=== PATIENT | female | born 1975 | race Caucasian/White ===

== ENCOUNTER 2021-07-21 21:07 | Observation (INO) ==
[2021-07-21] MEDS ORDERED: ONDANSETRON INJ 2 MG/ML 2 ML VIAL IV STA (22:01)
[2021-07-21] MEDS ORDERED: MoRPHine SULFATE 4 MG/ML 1 ML CARP\\VIAL IV STA (22:01)
[2021-07-21] MEDS ORDERED: methylPREDNISolone 125 MG/2 ML VIAL IV STA (22:01)
--- NOTE | 2021-07-21 22:04 | Emergency Department Note ---
Impression & Plan Lumbar disc disease ADMIT ED Provider Note HPI: The patient is a 46-year-old female who presents the emergency department with right lower back pain radiating down the right leg. Patient states that she has had issues with right lower back pain with some radicular symptoms down the right buttocks and right leg for the past 2 weeks. She states that she is actually had manipulations done by chiropractor but this seems to have worsened her pain. Patient denies any urinary incontinence or retention, denies any recent fevers, denies any sensory deficits distally in the lower extremities, motor function has been intact throughout the course of her symptoms over the past 2 weeks. On arrival here to the ED the patient is noted to be hypertensive and in mild distress secondary to back pain. She is otherwise saturating well on room air, afebrile, hemodynamically stable. ROS: -MSK: Lower back pain with radicular symptoms *10 point review systems was conducted and is otherwise negative unless stated above *Outpatient medications and allergy history reviewed PE: General: Alert, mild distress secondary to back pain HEENT: Normocephalic, atraumatic Eyes: Extraocular eye movement is intact, no scleral erythema Pulmonary: Clear to auscultation bilaterally, no wheezing Cardio: Regular rate and rhythm GI: Abdomen is soft, nontender : No suprapubic tenderness MSK: No evidence of trauma or malformation of the extremities, no edema, there is no tenderness with palpation in the midline of the thoracic or lumbar spine, no fluctuant mass or step-off deformity Skin: No evidence of rash Neuro: Alert, no focal deficits, plantar flexion and dorsiflexion is intact bilaterally in the lower extremities, sensation is intact bilaterally in the lower extremities Psychiatric: Cooperative residential monitor: - An order was placed for continuous cardiac monitoring - Patient was noted to be in sinus rhythm with rate of 70 CT L SPINE: The lumbar spine vertebral body heights and disc spaces are within normal limits. No compression fracture or burst fracture is seen. The alignment is normal. The facets and spinous processes are intact and normally aligned. At L3-4 there is broad-based posterior and right-sided disc herniation measuring at least 4 mm narrowing the thecal sac to 7-8 mm. Probable moderate right neuroforaminal narrowing. Radiologist: Eh Staples MD CT PELVIS: The proximal femurs are intact and normally positioned with respect to the acetabulum. No acute fracture or dislocation is seen. There is mild narrowing and osteophytosis of both hip joints consistent with mild osteoarthritis The pelvis appears intact. Incidental note is made of a small amount of free fluid in the left anterior pelvis. Possibly associated with the left ovary. The uterus is mildly enlarged. Bowel loops are nondilated and unremarkable. Radiologist: Eh Staples MD Medical Decision Making: Patient presented to the emergency department with some acute back pain that is been worsening over the past 2 weeks. On arrival here to the ED the patient does appear to be in some significant discomfort and therefore was given IV morphine and a dose of IV Solu-Medrol for back pain. CT imaging of the lumbar spine was obtained that shows evidence of a broad-based posterior and right- sided disc herniation that measures 4 mm with probable moderate right neuro foraminal narrowing, likely causing the patient's radicular symptoms down the right side. No evidence of any fracture or dislocation is noted within the lumbar spine or pelvis. On my reassessment the patient is more comfortable appearing, states her pain is improved, she remains neurologically intact distally in the lower extremities. Her pain is now been ongoing for 2 weeks, I suspect that the disc bulge is the source of her pain with radicular symptoms. On my reassessment the patient was stating that her pain was improved, she was resting more comfortably in bed, decision was made for discharge and orders placed with outpatient medications prescribed. I was informed by the bedside RN that the patient got up to go to the bathroom and then again had severe and intractable pain. She was ordered a dose of Toradol for her pain. On my reassessment the patient is tearful, states that she feels that she is in too much pain to go home. Given this in conjunction with the CT imaging findings, I did discuss case with on-call orthopedic surgery/spinal surgery, Dr. Suggs, who is in agreement to evaluate the patient tomorrow, recommended that MRI be ordered and the order was placed. I also discussed the case with the on-call hospitalist for [facility], Dr. Myrick, who will admit the patient to the medicine service for surgical consultation. Patient was in agreement to the above plan and the patient was admitted in stable condition. Diagnosis: 1. Acute right lower back pain with radicular symptoms, intractable 2. L3/L4 broad-based disc herniation 3. Thecal sac narrowing/impingement Disposition: Admission Orlando Rousseau DO Emergency Medicine Past Med/Surg History Medical History (Updated 07/22/21 @ 00:14 by Orlando Rousseau DO) GERD (gastroesophageal reflux disease) CONTROLLED Hypertension Morbid obesity Surgical History History of section X2 History of cholecystectomy History of dilatation and curettage Social History Smoking Status: Never smoker Second Hand Exposure: No; Hx Alcohol Use: No Hx Substance Use: No Preferred Language: [place]i Communication Ability: Effective Automation Engineer Required: No Beliefs That Will Affect Care: None Current Living Situation: Spouse Feels Safe at Home: Yes Assistive Devices: None Allergies Allergies Allergy/AdvReac Type Severity Reaction Status Date / Time No Known Allergies Allergy Unknown Verified 07/21/21 22:39 Home Meds Home Medications Medication Instructions Recorded Confirmed ferrous sulfate 325 mg (65 mg 325 mg PO QAM 06/08/18 07/21/21 iron) tablet (iron) lisinopril 10 mg tablet 10 mg PO QPM 06/08/18 07/21/21 multivitamin 1 tab PO QAM 06/08/18 07/21/21 omeprazole 20 mg capsule,delayed 20 mg PO Q OTHER DAY 09/09/20 07/21/21 release clonazepam 0.5 mg tablet 0.5 mg PO HS PRN 07/21/21 07/21/21 tramadol 50 mg tablet 50 mg PO Q6H PRN 07/21/21 07/21/21 Previous Rx's Medication Instructions Recorded naproxen 500 mg tablet 500 mg PO BID PRN #14 tab 07/22/21 oxycodone-acetaminophen 5 mg-325 1 tab PO Q8H PRN #14 tab 07/22/21 mg tablet (Percocet) prednisone 20 mg tablet 20 mg PO BID 5 Days #10 tab 07/22/21 Results & Data (ED) Vital Signs Vital Signs - 24 hr 07/21/21 21:18 Temperature 37.2 C Temperature Source Oral Pulse Rate 72 Respiratory Rate 18 Blood Pressure 178/80 H Blood Pressure Mean 112 Pulse Oximetry 96 Sepsis Recent Fever Within 48 Hours No Sepsis New/Unexplained Change in Mental Status No Sepsis Action Taken by Nursing No Action Required Laboratory Data Result diagrams: 07/21/21 21:20 07/21/21 21:20 Lab Results 07/21/21 07/21/21 Range/Units 21:20 21:20 WBC 9.90 (4.8-10.8) K/uL RBC 4.96 (4.2-5.4) M/uL Hgb 14.7 (12.0-16.0) g/dL Hct 42.9 (37-47) % MCV 86.5 (80-100) fL MCH 29.6 (25-34) pg MCHC 34.3 (32-36) g/dL RDW Std Deviation 41.0 (36.4-46.3) fL RDW Coeff of Oc 12.9 (11.5-14.5) % Plt Count 259 (130-400) K/uL MPV 9.5 (7.4-10.4) fL Immature Gran % (Auto) 0.3 % Neut % (Auto) 90.3 % Lymph % (Auto) 7.7 % [place] % (Auto) 1.5 % Eos % (Auto) 0.1 % Baso % (Auto) 0.1 % Neut # (Auto) 8.94 H (1.4-6.5) K/uL Lymph # (Auto) 0.76 L (1.2-3.4) K/uL [place] # (Auto) 0.15 (0.11-0.59) K/uL Eos # (Auto) 0.01 (0-0.5) K/uL Baso # (Auto) 0.01 (0-0.2) K/uL Immature Gran # (Auto) 0.03 H (0.00-0.02) K/uL Sodium 132 L (136-145) mmol/L Potassium 4.1 (3.5-5.1) mmol/L Chloride 99 (98-107) mmol/L Carbon Dioxide 24 (21-32) mmol/L Anion Gap 9 (3-11) BUN 11 (6-23) mg/dl Creatinine 0.74 (0.6-1.2) mg/dl Est Cr Clr Drug Dosing 110.9 ml/min Est GFR ( Amer) 111.8 ml/min Est GFR (Non-Af Amer) 96.5 ml/min BUN/Creatinine Ratio 14.9 (10-20) Glucose 214 H (70-99(Fasting)) mg/dl Calcium 9.6 (8.5-10.1) mg/dl Administered Medications Discontinued Medications Ketorolac Tromethamine (Ketorolac 30 Mg/Ml Vial) 30 mg IV NOW ONE Stop: 07/22/21 00:20 Last Admin: 07/22/21 00:23 Dose: 30 mg Documented by: [id number] Methylprednisolone (Methylprednisolone 125 Mg/2 Ml Vial) 125 mg IV NOW STA Stop: 07/21/21 22:02 Last Admin: 07/21/21 22:11 Dose: 125 mg Documented by: [id number] Morphine Sulfate (Morphine Sulfate 4 Mg/Ml 1 Ml Carp\Vial) 4 mg IV NOW STA Stop: 07/21/21 22:02 Last Admin: 07/21/21 22:11 Dose: 4 mg Documented by: [id number] Ondansetron HCl (Ondansetron Inj 2 Mg/Ml 2 Ml Vial) 4 mg IV NOW STA Stop: 07/21/21 22:02 Last Admin: 07/21/21 22:11 Dose: 4 mg Documented by: [id number] Discharge Plan Visit Data Chief Complaint: Hip Pain Stated Complaint: HIP PAIN ED Provider: Orlando Rousseau Discharge Problem: Lumbar disc disease Patient Disposition: Home - Self-Care Condition: Good Discharge Instructions Jeovany/Other Patient Handouts: ED Sciatica, ED [facility] Back Pain Activity Restrictions/Additional Instructions: Your CT scan shows disc bulging at the Lumbar Spine level of L3-L4. Please follow-up with orthopedic surgery/spinal surgery, Dr. Suggs, as advised, please call tomorrow for an appointment. Please take your medications as prescribed. Please return to the emergency department immediately if you develop any new or worsening symptoms. Forms Stand Alone Forms: My [facility] Emergency Department, Important Visit Information Prescriptions Prescriptions: New prednisone 20 mg tablet 20 mg PO BID 5 Days Qty: 10 RF: 0 naproxen 500 mg tablet 500 mg PO BID PRN (Reason: pain) Qty: 14 RF: 0 oxycodone-acetaminophen [Percocet] 5-325 mg tablet 1 tab PO Q8H PRN (Reason: pain) Qty: 14 RF: 0 No Action multivitamin Tablet 1 tab PO QAM RF: 0 ferrous sulfate [iron] 325 mg (65 mg iron) Tablet 325 mg PO QAM RF: 0 lisinopril 10 mg Tablet 10 mg PO QPM RF: 0 omeprazole 20 mg capsule,delayed release(DR/EC) 20 mg PO Q OTHER DAY RF: 0 clonazepam 0.5 mg tablet 0.5 mg PO HS PRN (Reason: SLEEP/ANXIETY) RF: 0 tramadol 50 mg tablet 50 mg PO Q6H PRN (Reason: Pain) RF: 0 Referrals Referrals: Chandan Suggs DO [Surgeon] - Yola Francois DO [Primary Care Provider] -
[2021-07-21 22:15] LABS: Basophils # (auto) 0.01 K/uL (0-0.2); Basophils % (auto) 0.1 %; Eosinophils # (auto) 0.01 K/uL (0-0.5); Eosinophils % (auto) 0.1 %; Hematocrit (blood only) 42.9 % (37-47); Hemoglobin 14.7 g/dL (12.0-16.0); Immature Granulocytes # (auto) 0.03 K/uL (0.00-0.02); Immature Granulocytes % (auto) 0.3 %; Lymphocytes # (auto) 0.76 K/uL (1.2-3.4); Lymphocytes % (auto) 7.7 %; Mean Corpuscular Hemoglobin 29.6 pg (25-34); Mean Corpuscular Hgb Conc 34.3 g/dL (32-36); Mean Corpuscular Volume 86.5 fL (80-100); Mean Platelet Volume 9.5 fL (7.4-10.4); Monocytes # (auto) 0.15 K/uL (0.11-0.59); Monocytes % (auto) 1.5 %; Neutrophils # (auto) 8.94 K/uL (1.4-6.5); Neutrophils % (auto) 90.3 %; Platelet Count 259 K/uL (130-400); RDW Coefficient of Variation 12.9 % (11.5-14.5); Red Blood Count 4.96 M/uL (4.2-5.4)
[2021-07-21 22:20] LABS: BUN Creatinine Ratio 14.9 (10-20); Calcium 9.6 mg/dl (8.5-10.1); Creatinine Clr Calc Pharmacy 110.9 ml/min; Est GFR (African American) 111.8 ml/min; Est GFR (Non-African American) 96.5 ml/min; Potassium 4.1 mmol/L (3.5-5.1)
[2021-07-22] MEDS ORDERED: PERCOCET 5/325MG HOMEPACK PO ONE (00:14)
[2021-07-22] MEDS ORDERED: KETOROLAC 30 MG/ML VIAL IV ONE (00:19)
[2021-07-22] MEDS ORDERED: SODIUM CHLORIDE 0.9% 1000ML 1,000 ML IV STA (01:00)
--- NOTE | 2021-07-22 01:00 | History & Physical Report ---
Date of Service July 22, 2021 Assessment & Plan (1) Lumbar radiculopathy: Plan: Intractable discomfort Situational hypertension secondary to above and missed nighttime medication New diagnosis of DM2, recent outpatient hemoglobin A1c of 24 June 2021 OBS GMF Analgesia, Lidoderm patch trial Orthopedic spine consult (ER provider already in touch with Dr. Suggs who recommends MRI of lumbar spine and n.p.o. status in anticipation of possible procedure in a.m.) Facilitate home lisinopril and titrate as needed Basal insulin adjusted for n.p.o. status, ISS BG goal 1 10-1 40, DM education DVT prophylaxis. SCDs Re: Possible procedure Full code Patient requesting update providers. Mr. Boy Barboza, contact #[phone]. Text document was generated using [employer] voice recognition software. It may contain grammatical or spelling errors. Kindly contact undersigned for clarification of any documentation item in question. History of Present Illness Chief Complaint: Back pain, RLE weakness Primary Care Provider: Yola Francois, History obtained from patient, family, and records. Medical history significant for hypertension, recent diagnosis of DM2, history factor V Leiden mutation/protein S deficiency. 2 weeks ago, patient noted low back pain more on the right with radiation to the right leg. Possibly related to a recent road trip. Pain worsened by ambulation. Some improvement with outpatient chiropractor consultation. Worsening discomfort noted yesterday. No fever, no chills. No bladder/urinary incontinence. Patient directed by chiropractor to PCPs office for initiation of steroid Rx. Patient prescribed prednisone course. Worsening discomfort at home with right leg weakness. Intractable discomfort at the ER. 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 Allergies Allergy/AdvReac Type Severity Reaction Status Date / Time No Known Allergies Allergy Unknown Verified 07/21/21 22:39 Home Medications Medication Instructions Recorded Confirmed Type ferrous sulfate 325 mg (65 mg 325 mg PO QAM 06/08/18 07/21/21 History iron) tablet (iron) lisinopril 10 mg tablet 10 mg PO QPM 06/08/18 07/21/21 History multivitamin 1 tab PO QAM 06/08/18 07/21/21 History omeprazole 20 mg capsule,delayed 20 mg PO Q OTHER DAY 09/09/20 07/21/21 History release clonazepam 0.5 mg tablet 0.5 mg PO HS PRN 07/21/21 07/21/21 History tramadol 50 mg tablet 50 mg PO Q6H PRN 07/21/21 07/21/21 History naproxen 500 mg tablet 500 mg PO BID PRN #14 tab 07/22/21 Rx oxycodone-acetaminophen 5 mg-325 1 tab PO Q8H PRN #14 tab 07/22/21 Rx mg tablet (Percocet) prednisone 20 mg tablet 20 mg PO BID 5 Days #10 tab 07/22/21 Rx Past Med/Surg History Medical History (Updated 07/22/21 @ 04:00 by Madhav Macias MD) GERD (gastroesophageal reflux disease) CONTROLLED Hypertension Morbid obesity Surgical History History of section X2 History of cholecystectomy History of dilatation and curettage Social History Smoking Status: Never smoker Second Hand Exposure: No; Hx Alcohol Use: No Hx Substance Use: No Preferred Language: Khmer Communication Ability: Effective Dispatcher Relay Required: No Beliefs That Will Affect Care: None Current Living Situation: Spouse and Family Current Living Situation Comment: and three kids Other Information That Helps Us Care for You: No Feels Safe at Home: Yes Safety Concerns: Afraid for Self Assistive Devices: None Review of Systems Review of Systems: As per HPI, all other systems reviewed and negative Physical Exam Physical Exam: GENERAL: uncomfortable, obese, pleasant, no respiratory distress SKIN: Normal color, warm HEENT: [place] palpebral conjunctivae, no ptosis, dry buccal mucosa NECK : Supple, no tenderness CHEST : CTA, no tenderness HEART : RRR, no obvious murmurs ABDOMEN: Some distention, nontender BACK : Low back tenderness, positive SLR R EXTREMITIES : Minimal LE swelling, no LE tenderness, no other conspicuous deformities noted NEUROLOGIC : Coherent, no facial asymmetry, gait and stance not assessed Results & Data Results & Data ([facility]) Vital Signs (Past 12 Hours) Vital Signs Temp Pulse Resp BP Pulse Ox 07/21/21:18 37.2 C 72 18 178/80 H 96 Laboratory Results Laboratory Results WBC 9.90 K/uL (4.8-10.8) 07/21/21 21:20 RBC 4.96 M/uL (4.2-5.4) 07/21/21 21:20 Hgb 14.7 g/dL (12.0-16.0) 07/21/21 21:20 Hct 42.9 % (37-47) 07/21/21 21:20 MCV 86.5 fL (80-100) 07/21/21 21:20 MCH 29.6 pg (25-34) 07/21/21 21:20 MCHC 34.3 g/dL (32-36) 07/21/21 21:20 RDW Std Deviation 41.0 fL (36.4-46.3) 07/21/21 21:20 RDW Coeff of Oc 12.9 % (11.5-14.5) 07/21/21 21:20 Plt Count 259 K/uL (130-400) 07/21/21 21:20 MPV 9.5 fL (7.4-10.4) 07/21/21 21:20 Immature Gran % (Auto) 0.3 % 07/21/21 21:20 Neut % (Auto) 90.3 % 07/21/21 21:20 Lymph % (Auto) 7.7 % 07/21/21 21:20 [place] % (Auto) 1.5 % 07/21/21 21:20 Eos % (Auto) 0.1 % 07/21/21 21:20 Baso % (Auto) 0.1 % 07/21/21 21:20 Neut # (Auto) 8.94 K/uL (1.4-6.5) H 07/21/21 21:20 Lymph # (Auto) 0.76 K/uL (1.2-3.4) L 07/21/21 21:20 [place] # (Auto) 0.15 K/uL (0.11-0.59) 07/21/21 21:20 Eos # (Auto) 0.01 K/uL (0-0.5) 07/21/21 21:20 Baso # (Auto) 0.01 K/uL (0-0.2) 07/21/21 21:20 Immature Gran # (Auto) 0.03 K/uL (0.00-0.02) H 07/21/21 21:20 Sodium 132 mmol/L (136-145) L 07/21/21 21:20 Potassium 4.1 mmol/L (3.5-5.1) 07/21/21 21:20 Chloride 99 mmol/L (98-107) 07/21/21 21:20 Carbon Dioxide 24 mmol/L (21-32) 07/21/21 21:20 Anion Gap 9 (3-11) 07/21/21 21:20 BUN 11 mg/dl (6-23) 07/21/21 21:20 Creatinine 0.74 mg/dl (0.6-1.2) 07/21/21 21:20 Est Cr Clr Drug Dosing 110.9 ml/min 07/21/21 21:20 Est GFR ( Amer) 111.8 ml/min 07/21/21 21:20 Est GFR (Non-Af Amer) 96.5 ml/min 07/21/21 21:20 BUN/Creatinine Ratio 14.9 (10-20) 07/21/21 21:20 Glucose 214 mg/dl (70-99(Fasting)) H 07/21/21 21:20 Calcium 9.6 mg/dl (8.5-10.1) 07/21/21 21:[address] L SPINE initial read The lumbar spine vertebral body heights and disc spaces are within normal limits. No compression fracture or burst fracture is seen. The alignment is normal. The facets and spinous processes are intact and normally aligned. At L3-4 there is broad-based posterior and right-sided disc herniation measuring at least 4 mm narrowing the thecal sac to 7-8 mm. Probable moderate right neuroforaminal narrowing. CT pelvis initial read The proximal femurs are intact and normally positioned with respect to the acetabulum. No acute fracture or dislocation is seen. There is mild narrowing and osteophytosis of both hip joints consistent with mild osteoarthritis The pelvis appears intact. Incidental note is made of a small amount of free fluid in the left anterior pelvis. Possibly associated with the left ovary. The uterus is mildly enlarged. Bowel loops are nondilated and unremarkable.
[2021-07-22] MEDS ORDERED: LIDOCAINE 5% 1 PATCH TD STA (01:24)
[2021-07-22] MEDS ORDERED: lisinopril 10 MG TAB PO STA (01:25)
[2021-07-22] MEDS ORDERED: MoRPHine SULFATE 4 MG/ML 1 ML CARP\\VIAL IV PRN (01:29)
[2021-07-22] MEDS ORDERED: PROMETHAZINE HCL 12.5 MG in SODIUM CHLORIDE 0.9% 50 ML IV PRN (01:29)
[2021-07-22] MEDS ORDERED: INSULIN GLARGINE SOLOSTAR 100 UNITS/ML 3 ML PEN SC STA (01:29)
[2021-07-22] MEDS ORDERED: LORazepam 2 MG/1 ML VIAL IV PRN (01:29)
[2021-07-22] MEDS ORDERED: clonazePAM 0.5 MG TAB PO PRN (05:35)
[2021-07-22] MEDS ORDERED: GLUCOSE 40% GEL 15 GM TUBE PO PRN (05:35)
[2021-07-22] MEDS ORDERED: GLUCAGON FOR INJ 1 MG VIAL SQ PRN (05:35)
[2021-07-22] MEDS ORDERED: CARBOHYDRATES FOR HYPOGLYCEMIA PO PRN (05:35)
[2021-07-22] MEDS ORDERED: DEXTROSE 50% 50 ML SYRINGE IV PRN (05:35)
[2021-07-22] MEDS ORDERED: GLUCOSE 10 TABS/TUBE PO PRN (05:35)
[2021-07-22] MEDS ORDERED: INSULIN ASPART PER UNIT SC SCH (06:00)
[2021-07-22 06:38] LABS: Hemoglobin 14.8 g/dL (12.0-16.0); Immature Granulocytes # (auto) 0.04 K/uL (0.00-0.02); Immature Granulocytes % (auto) 0.4 %; Lymphocytes # (auto) 0.67 K/uL (1.2-3.4); Lymphocytes % (auto) 6.5 %; Mean Corpuscular Hemoglobin 29.4 pg (25-34); Mean Corpuscular Hgb Conc 34.4 g/dL (32-36); Mean Corpuscular Volume 85.5 fL (80-100); Mean Platelet Volume 9.1 fL (7.4-10.4); Monocytes # (auto) 0.06 K/uL (0.11-0.59); Monocytes % (auto) 0.6 %; Neutrophils % (auto) 92.5 %; Platelet Count 255 K/uL (130-400); RDW Coefficient of Variation 12.9 % (11.5-14.5); RDW Standard Deviation 40.3 fL (36.4-46.3); Red Blood Count 5.03 M/uL (4.2-5.4); White Blood Count 10.37 K/uL (4.8-10.8)
[2021-07-22 06:56] LABS: BUN Creatinine Ratio 16.9 (10-20); Calcium 9.7 mg/dl (8.5-10.1); Creatinine Clr Calc Pharmacy 126.3 ml/min; Est GFR (African American) 122.5 ml/min; Est GFR (Non-African American) 105.7 ml/min; Potassium 4.1 mmol/L (3.5-5.1)
--- NOTE | 2021-07-22 07:13 | CT Scan Report ---
LUMBAR SPINE CT CT DOSE: HISTORY: Right lower back pain with radiation down R leg TECHNIQUE: Multiaxial CT images of the lumbar spine were performed and reformatted in the sagittal an d coronal plane without the use of contrast. A dose lowering technique was utilized adhering to the principles of ALARA. COMPARISON: None. FINDINGS: No fracture or subluxation within the lumbar spine. Paravertebral soft tissues are unremark able. Mild central canal narrowing at L3-L4 and L4-L5 due to a small broad-based posterior disc bulge with ligamentum and facet hypertrophy. Prior cholecystectomy. Mild disc space narrowing at L5-S1. Th ere is a right foraminal/extraforaminal focal disc protrusion at L3-L4 best seen on axial image 195. This likely abuts the exiting right L3 nerve root. IMPRESSION: 1. No fractures within the lumbar spine. 2. There is a right foraminal/extra foraminal focal disc protrusion at L3-L4 which abuts the exiting right L3 nerve root. ACT 112: Negative or not required by law. Electronically signed by: Anthony Brooks M.D. 07/22/2021 7:12 AM
--- NOTE | 2021-07-22 07:24 | Magnetic Resonance Report ---
LUMBAR SPINE MRI HISTORY: Intractable lower back pain, abnormal CT TECHNIQUE: Multiplanar multisequence MRI of the lumbar spine was performed without the use of contras t. COMPARISON: Lumbar spine CT 07/21/2021. FINDINGS: For the purpose of the report the L5-S1 disc space will be located on axial image 23 of 25. Mild disc space narrowing at L1-L2 and L5-S1. The conus terminates at the L1-L2 disc space level. Str aightening of the lumbar spine. No fracture or subluxation. Normal marrow signal intensity seen throu ghout the visualized osseous structures. Paravertebral soft tissues are unremarkable. The visualized sacrum is intact. Prominent uterus which is partially visualized. L1-L2: Tiny broad-based posterior disc bulge without significant central canal or neural foraminal na rrowing. L2-L3: No significant central canal or neural foraminal narrowing. L3-L4: There is a moderate sized broad-based right foraminal/extra foraminal disc protrusion measurin g approximately 6 mm which abuts and displaces the exiting right L3 nerve root and results in moderat e right neural foraminal narrowing. There is a small broad-based posterior disc bulge without signifi cant central canal or left-sided neural foraminal narrowing. L4-L5: There is a small right extraforaminal focal disc protrusion measuring 4 mm which appears to ab ut the exiting right L4 nerve root. No significant central canal or neural foraminal narrowing. L5-S1: No significant central canal or neural foraminal narrowing. IMPRESSION: 1. A moderate size broad-based right foraminal/extraforaminal disc protrusion at L3-L4 which abuts an d displaces the exiting right L3 nerve root and results in moderate right neural foraminal narrowing. 2. There is a small right extraforaminal focal disc protrusion at L4-5 which appears to abut the exit ing right L3 nerve root. 3. No fracture or subluxation. ACT 112: Negative or not required by law. Electronically signed by: Anthony Brooks M.D. 07/22/2021 7:23 AM
--- NOTE | 2021-07-22 07:25 | XRay Report ---
XR chest 1V portable HISTORY: Hypoxia. hyponatremia, low o2 COMPARISON: None. FINDINGS: There are low lung volumes. No pneumothorax. No pleural effusions. The cardiac silhouette i s mildly enlarged. No focal lung consolidations to suggest pneumonia. No evidence for pulmonary edema . There is a mildly tortuous thoracic aorta. IMPRESSION: Low lung volumes with mild prominence of the cardiac silhouette. ACT 112: Negative or not required by law. Electronically signed by: Anthony Brooks M.D. 07/22/2021 7:24 AM
--- NOTE | 2021-07-22 07:41 | CT Scan Report ---
CT pelvis wo con CLINICAL HISTORY: Right hip pain. COMPARISON STUDY: No previous studies for comparison. TECHNIQUE: Axial images of the pelvis and hips were obtained without IV contrast. Sagittal and doss l reconstructions were viewed. Automated exposure control was utilized for the study. A dose lowerin g technique was utilized adhering to the principles of ALARA. FINDINGS: A small amount of fluid within the left lower quadrant is noted. The uterus is suboptimally assessed by CT. There is uterine enlargement with a possible left posterior fundal fibroid. Caliber of visualized small and large bowel are normal. Bladder is distended. No pelvic lymphadenopathy. No s uspicious lesions within the visualized skeletal structures. No acute fracture within the pelvis or h ips is identified. There is no evidence for avascular necrosis of the femoral heads. There is mild jeronimo int space narrowing and osteophytosis of both hips consistent with osteoarthritis. No erosions are id entified. No pelvic masses are identified. IMPRESSION: 1. No acute fracture within the pelvis or hips. 2. Mild joint space narrowing and osteophytosis of both hips consistent with osteoarthritis. 3. Enlarged uterus, suboptimally assessed by CT. Possible left posterior fundal fibroid. 4. Small amount of fluid within the left lower quadrant. ACT 112: Negative or not required by law. Electronically signed by: Tomas Cotto M.D. 07/22/2021 7:40 AM
[2021-07-22] MEDS: ACETAMINOPHEN 325 MG TAB PO PRN ×3 (07:52→20:54)
[2021-07-22] MEDS: MULTIVITAMIN TAB PO SCH (07:53)
[2021-07-22] MEDS: FERROUS SULFATE 325 MG TAB PO SCH (07:53)
[2021-07-22 08:17] LABS: Pregnancy Test, Urine Negative (Negative)
[2021-07-22 08:20] LABS: Appearance Urine Clear (Clear); Bacteria Urine Automated Negative (Negative); Bilirubin Urine Negative (Negative); Blood Urine Trace (Negative); Cast Urine Automated 0 /lpf (0-5); Color Urine Yellow; Epithelial Cell Urine Auto 20-30 /lpf (0-5); Glucose Urine UA 2+ (Negative); Ketones Urine 2+ (Negative); Leukocyte Esterase Urine Negative (Negative); Nitrite Urine Negative (Negative); Protein Urine 1+ (Negative); RBC Urine Automated 0-4 /hpf (0-4); Specific Gravity Urine 1.013 (1.000-1.030); Urobilinogen Urine Negative (Negative); pH Urine 5.5 (4.5-7.5)
--- NOTE | 2021-07-22 08:56 | Orthopedic Consultation ---
Date of Consultation July 22, 2021 Assessment & Plan (1) Lumbar radiculopathy: MRI lumbar spine demonstrates a far lateral disc herniation at L3-L4 on the right which is completely concordant with her clinical presentation. I explained to her that she has an L3 radiculopathy subsequently affecting the quadricep and is at the type of discrimination that creates severe pain. Fortunately she is responded to IV steroids. I did state that she could be at risk for recurrent pain. We will consult interventional pain management in the event that she requires an epidural injection. If she fails to improve and the symptoms continue to return he may have to consider far lateral discectomy. Patient understands and agrees. History of Present Illness Reason for Consultation: Right leg pain Attending Physician: Allan Lopez MD History of Present Illness This is a 46-year-old female presents emergency room last evening with severe right leg radiculopathy. Is been progressive for the past 10 days. She has been unable to ambulate. The pain is severe. This morning she states she feels much better after course of IV steroids. She described episodes of numbness tingling and strength deficit involving the right quadriceps and feels more confident this morning. She has not been out of bed and ambulated yet. Allergies Allergy/AdvReac Type Severity Reaction Status Date / Time No Known Allergies Allergy Unknown Verified 07/21/21 22:39 Home Medications Medication Instructions Recorded Confirmed Type ferrous sulfate 325 mg (65 mg 325 mg PO QAM 06/08/18 07/21/21 History iron) tablet (iron) lisinopril 10 mg tablet 10 mg PO QPM 06/08/18 07/21/21 History multivitamin 1 tab PO QAM 06/08/18 07/21/21 History omeprazole 20 mg capsule,delayed 20 mg PO Q OTHER DAY 09/09/20 07/21/21 History release clonazepam 0.5 mg tablet 0.5 mg PO HS PRN 07/21/21 07/21/21 History tramadol 50 mg tablet 50 mg PO Q6H PRN 07/21/21 07/21/21 History naproxen 500 mg tablet 500 mg PO BID PRN #14 tab 07/22/21 Rx oxycodone-acetaminophen 5 mg-325 1 tab PO Q8H PRN #14 tab 07/22/21 Rx mg tablet (Percocet) prednisone 20 mg tablet 20 mg PO BID 5 Days #10 tab 07/22/21 Rx Patient History Medical History (Updated 07/22/21 @ 04:00 by Madhav Macias MD) GERD (gastroesophageal reflux disease) CONTROLLED Hypertension Morbid obesity Surgical History History of section X2 History of cholecystectomy History of dilatation and curettage Social History Smoking Status: Never smoker Second Hand Exposure: No; Hx Alcohol Use: No Hx Substance Use: No Preferred Language: Albanian Communication Ability: Effective 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 She has reasonable strength detailed testing lower extremities. There is no sensory deficits at this time. Results & Data ([facility]) Vital Signs (Past 12 Hours) Vital Signs Temp Pulse Pulse Resp BP BP Pulse Ox 07/22/21 07:11 36.8 C 84 16 118/77 93 07/22/21 05:15 36.7 C 97 H 14 142/87 H 96 07/22/21 04:36 36.7 C 100 H 15 142/87 H 96 07/22/21 03:40 88 L 07/22/21 03:00 90 18 90 07/21/21 21:18 37.2 C 72 18 178/80 H 96
[2021-07-22] MEDS ORDERED: PANTOprazole 40 MG TAB PO SCH (09:00)
[2021-07-22] MEDS: oxyCODONE HCL IR 5 MG TAB (IMMEDIATE RELEASE) PO PRN ×2 (09:20→17:34)
[2021-07-22] MEDS: INSULIN ASPART PER UNIT SC SCH ×3 (12:34→20:54)
[2021-07-22] MEDS ORDERED: MoRPHine SULFATE 2 MG/ML CARP IV PRN (14:00)
--- NOTE | 2021-07-22 16:51 | Hospitalist Progress Note ---
Date of Service July 22, 2021 Assessment & Plan (1) Lumbar radiculopathy: Plan: Lumbar radiculopathy Secondary to disc herniation at L3-L4 -MRI Lumbar Spine:A moderate size broad-based right foraminal/extraforaminal disc protrusion at L3-L4 which abuts and displaces the exiting right L3 nerve root and results in moderate right neural foraminal narrowing. There is a small right extraforaminal focal disc protrusion at L4-5 which appears to abut the exiting right L3 nerve root. No fracture or subluxation. Appreciate Orthopedics Input Pain management consulted for possible epidural injection If no improvement with conservative management, then would require discectomy Pain Control PT/OT Situational hypertension secondary to above/missed meds BP better Continue Lisinopril New diagnosis of DM2 HbA1C:7.0 in June 2021 Prefers to discuss with PCP before starting meds ISS for now DVT Px: SCDs for now Encourage to ambulate Code Status Full code Admission and Anticipated Discharge Date Admission Date: July 22, 2021 Subjective Patient is seen and examined at bedside Back pain is slightly better this morning Denies any chest pain, dyspnea, dizziness, nausea, abdominal pain Offers no other complaints Review of Systems Review of Systems: All systems reviewed & are unremarkable except as noted in Subjective Physical Exam Physical Exam: Physical Exam: Vitals signs as noted above General Appearance:Obese, no apparent distress Head: normocephalic, Atraumatic Eyes: normal inspection, EOMI Neck: supple, Trachea midline Respiratory/Chest: Normal breath sounds, CTA Cardiovascular: S1, S2, No murmur Abdomen/GI:Soft, Non tender, Bowel sounds present Back: Lower backshoe person Extremities/Musculoskeletal:normal inspection, no edema Neurologic/Psych:AAOX3, grossly no focal neurological deficits Skin: normal color, warm Results & Data Results & Data ([facility]) Vital Signs (Past 12 Hours) Vital Signs Temp Pulse Resp BP BP Pulse Ox 07/22/21 14:54 36.6 C 61 16 119/77 99 07/22/21 07:11 36.8 C 84 16 118/77 93 07/22/21 05:15 36.7 C 97 H 14 142/87 H 96 Laboratory Results Short CBC 07/21/21 07/22/21 Range/Units 21:20 06:11 WBC 9.90 10.37 (4.8-10.8) K/uL Hgb 14.7 14.8 (12.0-16.0) g/dL Hct 42.9 43.0 (37-47) % Plt Count 259 255 (130-400) K/uL BMP 07/21/21 07/22/21 21:20 06:11 Sodium 132 L 132 L Potassium 4.1 4.1 Chloride 99 102 Carbon Dioxide 24 22 BUN 11 11 Creatinine 0.74 0.65 Glucose 214 H 227 H Calcium 9.6 9.7 Urine 07/22/21 Range/Units 07:40 Urine Color Yellow Urine Appearance Clear (Clear) Urine pH 5.5 (4.5-7.5) Ur Specific [place] 1.013 (1.000-1.030) Urine Protein 1+ H (Negative) Urine Glucose (UA) 2+ H (Negative)
[2021-07-22] MEDS ORDERED: INSULIN GLARGINE SOLOSTAR 100 UNITS/ML 3 ML PEN SC SCH (21:00)
[2021-07-22] MEDS ORDERED: lisinopril 10 MG TAB PO SCH (21:00)
[2021-07-22] MEDS ORDERED: LIDOCAINE 5% 1 PATCH TD SCH (21:00)
[2021-07-23] MEDS: ACETAMINOPHEN 325 MG TAB PO PRN (06:14)
[2021-07-23 06:58] LABS: BUN Creatinine Ratio 21.3 (10-20); Calcium 9.1 mg/dl (8.5-10.1); Creatinine Clr Calc Pharmacy 107.6 ml/min; Est GFR (Non-African American) 94.9 ml/min; Potassium 3.9 mmol/L (3.5-5.1)
[2021-07-23] MEDS: INSULIN ASPART PER UNIT SC SCH ×2 (08:48→12:50)
[2021-07-23] MEDS: FERROUS SULFATE 325 MG TAB PO SCH (08:57)
[2021-07-23] MEDS: MULTIVITAMIN TAB PO SCH (08:57)
--- NOTE | 2021-07-23 09:19 | Pain Management Consultation ---
Date of Consultation July 23, 2021 Assessment & Plan (1) Lumbar radiculopathy: Patient has improved with the medications. She does feel well enough for discharge to home. Recommend oral steroid and Oxycodone on discharge. She will be scheduled for a right L3-4 transforaminal epidural steroid injection in our office on 08/10/21. Pre-procedural instructions were printed off and given to the patient. Risks and benefits were reviewed with the patient and the procedure was explained. Should she have difficulty with pain from now to the injection date we ask that she contact our office. History of Present Illness Reason for Consultation: Intractable back pain Attending Physician: Allan Lopez MD History of Present Illness Mrs. Barboza is a 46 year old female that has been seen in consultation for [facility] for intractable low back pain. She has been experiencing pain in the right buttock area but about 12 days ago the pain significantly worsened causing numbness, tingling, and heaviness of the right anterior thigh. She has previously tried Ibuprofen, Tylenol, ice, heat. Admitted for intractable back pain. She was given IV Solumedrol and since that time the acute pain has improved. There is no back pain, and aching/spasming in the right buttock, and numbness along the right anterior thigh. This morning she was able to bend forward and pick something up off of the floor and also able to get out of bed without significant difficulty. She has used Oxycodone twice yesterday. Not requiring any IV Morphine. Asks for Tylenol this morning. Spoke with Dr. Suggs yesterday and could be a candidate for a discectomy should conservative treatments not be effective. No bowel/bladder incontinence, saddle anesthesia, foot drop, or falls. Case discussed with Dr. Alia Tolbert Pain Assessment Full Body Front + Back: 1. 2. Allergies Allergy/AdvReac Type Severity Reaction Status Date / Time No Known Allergies Allergy Unknown Verified 07/21/21 22:39 Home Medications Medication Instructions Recorded Confirmed Type ferrous sulfate 325 mg (65 mg 325 mg PO QAM 06/08/18 07/21/21 History iron) tablet (iron) lisinopril 10 mg tablet 10 mg PO QPM 06/08/18 07/21/21 History multivitamin 1 tab PO QAM 06/08/18 07/21/21 History omeprazole 20 mg capsule,delayed 20 mg PO Q OTHER DAY 09/09/20 07/21/21 History release clonazepam 0.5 mg tablet 0.5 mg PO HS PRN 07/21/21 07/21/21 History tramadol 50 mg tablet 50 mg PO Q6H PRN 07/21/21 07/21/21 History naproxen 500 mg tablet 500 mg PO BID PRN #14 tab 07/22/21 Rx oxycodone-acetaminophen 5 mg-325 1 tab PO Q8H PRN #14 tab 07/22/21 Rx mg tablet (Percocet) prednisone 20 mg tablet 20 mg PO BID 5 Days #10 tab 07/22/21 Rx Patient History Medical History GERD (gastroesophageal reflux disease) CONTROLLED Hypertension Morbid obesity Surgical History History of section X2 History of cholecystectomy History of dilatation and curettage Social History Smoking Status: Never smoker Second Hand Exposure: No; Hx Alcohol Use: No Hx Substance Use: No Preferred Language: Ukrainian Communication Ability: Effective Narcotics Investigator Required: No Beliefs That Will Affect Care: None Current Living Situation: Spouse and Family Current Living Situation Comment: and three kids Feels Safe at Home: Yes Assistive Devices: None Physical Exam Physical Exam: GENERAL: This is a 46 year old female. Does not appear in any acute distress. HEAD/FACE: Normocephalic and atraumatic. EYES: No drainage or conjunctival injection. ENT: Nose without bleeding or discharge. Oral mucosa moist. NECK: Full ROM without apparent pain. No swelling or masses noted. RESPIRATORY: Patient with unlabored breathing. No signs of respiratory distress. CHEST/AXILLA: Chest movement symmetrical. No deformities noted. ABDOMEN/GI: No distension BACK: Moves without difficulty. No midline, facet joint, or SI joint tenderness. Mild right superior gluteal muscle spasm without trigger points. SKIN: [place], warm and dry. No rash noted. MS/EXTREMITY: Positive straight leg raise on the right, negative on the left. There is 4/5 strength with right hip flexion, otherwise 5/5 strength of the lower extremities. NEURO: Alert and appears oriented. Speech is fluent. Cranial Nerves are grossly intact. PSYCH: Alert, pleasant, affect is calm Results ([facility]) Diagnostic Review MRI Findings: LUMBAR SPINE MRI HISTORY: Intractable lower back pain, abnormal CT TECHNIQUE: Multiplanar multisequence MRI of the lumbar spine was performed without the use of contrast. COMPARISON: Lumbar spine CT 07/21/2021. FINDINGS: For the purpose of the report the L5-S1 disc space will be located on axial image 23 of 25. Mild disc space narrowing at L1-L2 and L5-S1. The conus terminates at the L1-L2 disc space level. Straightening of the lumbar spine. No fracture or subluxation. Normal marrow signal intensity seen throughout the visualized osseous structures. Paravertebral soft tissues are unremarkable. The visualized sacrum is intact. Prominent uterus which is partially visualized. L1-L2: Tiny broad-based posterior disc bulge without significant central canal or neural foraminal narrowing. L2-L3: No significant central canal or neural foraminal narrowing. L3-L4: There is a moderate sized broad-based right foraminal/extra foraminal disc protrusion measuring approximately 6 mm which abuts and displaces the exiting right L3 nerve root and results in moderate right neural foraminal narrowing. There is a small broad-based posterior disc bulge without significant central canal or left-sided neural foraminal narrowing. L4-L5: There is a small right extraforaminal focal disc protrusion measuring 4 mm which appears to abut the exiting right L4 nerve root. No significant central canal or neural foraminal narrowing. L5-S1: No significant central canal or neural foraminal narrowing. IMPRESSION: 1. A moderate size broad-based right foraminal/extraforaminal disc protrusion at L3-L4 which abuts and displaces the exiting right L3 nerve root and results in moderate right neural foraminal narrowing. 2. There is a small right extraforaminal focal disc protrusion at L4-5 which appears to abut the exiting right L3 nerve root. 3. No fracture or subluxation. ACT 112: Negative or not required by law. Electronically signed by: Anthony Brooks M.D. 07/22/2021 7:23 AM
[2021-07-23] MEDS: oxyCODONE HCL IR 5 MG TAB (IMMEDIATE RELEASE) PO PRN (10:44)
[2021-07-23] MEDS ORDERED: ACETAMINOPHEN 325 MG TAB PO PRN (11:14)
--- NOTE | 2021-07-23 13:10 | Hospitalist Progress Note ---
Date of Service July 23, 2021 Assessment & Plan (1) Lumbar radiculopathy: Plan: Lumbar radiculopathy Secondary to disc herniation at L3-L4 -MRI Lumbar Spine:A moderate size broad-based right foraminal/extraforaminal disc protrusion at L3-L4 which abuts and displaces the exiting right L3 nerve root and results in moderate right neural foraminal narrowing. There is a small right extraforaminal focal disc protrusion at L4-5 which appears to abut the exiting right L3 nerve root. No fracture or subluxation. Appreciate Orthopedics Input Appreciate Pain management Input Planned for epidural injection on 08/10/21 as outpatient If no improvement with conservative management, then would require discectomy eventually Continue Pain Control Also will be discharged on oral prednisone PT/OT Recommends outpatient PT Situational hypertension secondary to above/missed meds BP stable Continue Lisinopril New diagnosis of DM2 HbA1C:7.0 in June 2021 Prefers to discuss with PCP before starting meds ISS for now DVT Px: SCDs for now Encourage to ambulate Code Status Full code Admission and Anticipated Discharge Date Admission Date: July 22, 2021 Subjective Patient is seen and examined at bedside Back pain is better Did well with PT Denies any chest pain, dyspnea, dizziness, nausea, abdominal pain Plan to discharge home today Review of Systems Review of Systems: All systems reviewed & are unremarkable except as noted in Subjective Physical Exam Physical Exam: Physical Exam: Vitals signs as noted above General Appearance:Obese, no apparent distress Head: normocephalic, Atraumatic Eyes: normal inspection, EOMI Neck: supple, Trachea midline Respiratory/Chest: Normal breath sounds, CTA Cardiovascular: S1, S2, No murmur Abdomen/GI:Soft, Non tender, Bowel sounds present Back: Lower slasher tender Extremities/Musculoskeletal:normal inspection, no edema Neurologic/Psych:AAOX3, grossly no focal neurological deficits Skin: normal color, warm Results & Data Results & Data ([facility]) Vital Signs (Past 12 Hours) Vital Signs Temp Pulse Resp BP Pulse Ox 07/23/21 07:38 36.7 C 65 16 115/80 98 Laboratory Results [facility] 07/23/21 05:28 Sodium 137 Potassium 3.9 Chloride 106 Carbon Dioxide 25 BUN 16 Creatinine 0.75 Glucose 127 H Calcium 9.1
--- NOTE | 2021-07-23 13:20 | Discharge Summary ---
Date of Service July 23, 2021 Admission HPI Per Admitting Provider History obtained from patient, family, and records. Medical history significant for hypertension, recent diagnosis of DM2, history factor V Leiden mutation/protein S deficiency. 2 weeks ago, patient noted low back pain more on the right with radiation to the right leg. Possibly related to a recent road trip. Pain worsened by ambulation. Some improvement with outpatient chiropractor consultation. Worsening discomfort noted yesterday. No fever, no chills. No bladder/urinary incontinence. Patient directed by chiropractor to PCPs office for initiation of steroid Rx. Patient prescribed prednisone course. Worsening discomfort at home with right leg weakness. Intractable discomfort at the ER. 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 Admission Exam Per Admitting Provider Physical Exam Physical Exam: GENERAL: uncomfortable, obese, pleasant, no respiratory distress SKIN: Normal color, warm HEENT: [place] palpebral conjunctivae, no ptosis, dry buccal mucosa NECK : Supple, no tenderness CHEST : CTA, no tenderness HEART : RRR, no obvious murmurs ABDOMEN: Some distention, nontender BACK : Low back tenderness, positive SLR R EXTREMITIES : Minimal LE swelling, no LE tenderness, no other conspicuous deformities noted NEUROLOGIC : Coherent, no facial asymmetry, gait and stance not assessed Principal Diagnosis Lumbar radiculopathy Disc herniation at L3-L4 Discharge Data Allergies Allergy/AdvReac Type Severity Reaction Status Date / Time No Known Allergies Allergy Unknown Verified 07/21/21 22:39 Consultations 07/22/21 00:52 Consult Orthopedic Surgery Routine 07/22/21 00:56 ED Decision to Admit Stat 07/22/21 08:56 Consult Pain Management Routine 07/22/21 09:30 Burn CD for patient Routine Ordered Studies 07/21/21 22:00 CT lumbar spine wo con Urgent 07/21/21 22:02 CT pelvis wo con Urgent 07/22/21 00:49 MR lumbar spine wo con Stat Hospital Course (1) Lumbar radiculopathy: Lumbar radiculopathy Secondary to disc herniation at L3-L4 -MRI Lumbar Spine:A moderate size broad-based right foraminal/extraforaminal disc protrusion at L3-L4 which abuts and displaces the exiting right L3 nerve root and results in moderate right neural foraminal narrowing. There is a small right extraforaminal focal disc protrusion at L4-5 which appears to abut the exiting right L3 nerve root. No fracture or subluxation. Appreciate Orthopedics Input Appreciate Pain management Input Planned for epidural injection on 08/10/21 as outpatient If no improvement with conservative management, then would require discectomy eventually Continue Pain Control Also will be discharged on oral prednisone PT/OT Recommends outpatient PT Situational hypertension secondary to above/missed meds BP stable Continue Lisinopril New diagnosis of DM2 HbA1C:7.0 in June 2021 Prefers to discuss with PCP before starting meds ISS for now DVT Px: SCDs for now Encourage to ambulate Code Status Full code Total Time Total Time Spent Total Time Spent (In Minutes): 40 minutes Discharge Plan Discharge Items Patient Disposition: Home - Self-Care Reason For Visit: BACK PAIN Discharge Diagnosis: Lumbar radiculopathy Disc herniation at L3-L4 Condition on Discharge: Good Activity: Per Instructions section Exercise/Sports: Gradually increase as tolerated Non-emergency contact: Primary Care Provider, Surgeon and Specialist Call non-emergency contact if: you have any medication questions, your symptoms worsen, your pain is concerning for you and you have a fever Follow-up/Referrals: Yola Francois DO [Primary Care Provider] - (Date & Time 07/28/2021 11:10 AM Provider Yola Francois DO Department [facility] ) Diet: Carb Consistent or DM2 Addtl Attending Provider Instructions: Follow up with your PCP on 07/28/2021 11:10 AM Follow up with your Pain Management Dr.Jennifer Tolbert for epidural steroid injection on 08/10/21 Follow up with your Orthopedic Surgeon as needed ---Discuss with regarding managing your Diabetes as advised. Seek immediate medical attention if your symptoms reoccur or worsen Please take all medications as instructed on discharge list below. Please call if you have any questions or problems. You can reach a [facility] hospitalist on duty at [facility] 24 hours a day by calling [phone] Pending Studies at Discharge: No Stand-Alone Forms: My [facility] [employer], Smoking Cessation Medications and DC Order Prescriptions: New prednisone 20 mg tablet 20 mg PO BID 5 Days Qty: 10 RF: 0 naproxen 500 mg tablet 500 mg PO BID PRN (Reason: pain) Qty: 14 RF: 0 oxycodone-acetaminophen [Percocet] 5-325 mg tablet 1 tab PO Q8H PRN (Reason: pain) Qty: 14 RF: 0 Continued multivitamin Tablet 1 tab PO QAM RF: 0 ferrous sulfate [iron] 325 mg (65 mg iron) Tablet 325 mg PO QAM RF: 0 lisinopril 10 mg Tablet 10 mg PO QPM RF: 0 omeprazole 20 mg capsule,delayed release(DR/EC) 20 mg PO Q OTHER DAY RF: 0 clonazepam 0.5 mg tablet 0.5 mg PO HS PRN (Reason: SLEEP/ANXIETY) RF: 0 Discontinued tramadol 50 mg tablet 50 mg PO Q6H PRN (Reason: Pain) RF: 0 Discharge Orders: Discharge Order (Routine); Ordered 07/23/21 Ordered By: Allan Thayer/Other Patient Handouts: High Blood Sugar (Hyperglycemia), Managing Type 2 Diabetes, Healthy Meals for Diabetes, Understanding Carbohydrates Admission Data Admit Date/Time: 07/22/21 01:29 Attending Provider: Allan Lopez Admit Provider: Madhav Macias Primary Care Provider: Yola Francois Other Providers: Madhav Macias ; Chandan Suggs Upendra Other Interventions: Discharge Summary Assessment (RN) Last Done: 07/23/21 13:28
--- NOTE | 2021-07-23 13:21 | Orthopedic Progress Note ---
Date of Service July 23, 2021 Assessment & Plan (1) Lumbar radiculopathy: Plan: At this time the plan is to have her undergo possible epidural injection the latter half of this month. I did state the patient that if she declines and has significant return of radiculopathy she may ultimately need a far lateral discectomy. She understands and agrees. We will see her in the next week or so in the office if she is discharged. Admission and Anticipated Discharge Date Admission Date: July 22, 2021 Subjective Patient has some residual right leg pain. It has been waxing and waning since yesterday. She is currently tolerating the steroids. Physical Exam Physical Exam: On exam she does appear uncomfortable. She has recent strength testing. Results & Data ([facility]) Vital Signs (Past 12 Hours) Vital Signs Temp Pulse Resp BP Pulse Ox 07/23/21 07:38 36.7 C 65 16 115/80 98
== END 2021-07-23 14:41 | disposition home or self-care (01) ==
LOC: ED 21:07 → 3E 21:07